=== PATIENT | female | born 1995 | race Caucasian/White ===

== ENCOUNTER → 2017-12-07 | Outpatient (CLI) | payer MEDICAID ==
[~2017-12-07] MED LIST: ACET-2267 PO; ACHD5005 PO; CEFD300C3 PO; CEPH500C PO; DIPH25CA79 PO; IBUP-1773 PO; VIT1TABL75 PO
--- NOTE | 2017-12-07 15:57 | Diagnostic Imaging Report ---
INDICATION: care in second trimester. TECHNIQUE: Multiple real-time grayscale images were obtained over the gravid uterus. COMPARISON: There are no prior studies available for comparison. FINDINGS: There is a single live fetus in variable presentation. heart motion was noted and a rate of 140 BPM was recorded. There were no obvious abnormalities identified. However, it may prove worthwhile to have a short-term (4-6 week) followup exam for more sensitive evaluation of the anatomy. The placenta is fundal and there is no previa. The amniotic fluid volume is within normal limits. The cervix was identified and measures 4.9 cm in length. IMPRESSION: 1. There is a single live fetus of approximately 15 weeks gestation +/-1 week. The EDC is May 31, 2018. 2. There were no obvious abnormalities identified. Recommendations, as above. Biometrical measurements are as follows: Biparietal 2.99 cm, age 15 weeks 4 days. Head circumference 10.29 cm, age 14 weeks 6 days. Abdominal circumference 8.52 cm, age 14 weeks 6 days. Femur length 1.54 cm, age 14 weeks 4 days. Sonographic estimate age: 15 weeks 0 days. Sonographic estimated date of delivery: . Estimated Weight: 105 gm (+/- 15 gm). LMP percentile: %. heart rate: 140 beats per minute. number: 1 of 1. Dictated by: Dictated on workstation # [id number]
== END ==
LOC: RAD 14:01
PROVIDERS: ATTEND Family Medicine
DX: Z34.92 Encounter for supervision of normal pregnancy, unspecified, second trimester (principal); Z3A.15 15 weeks gestation of pregnancy
CPT/HCPCS: 76805

== ENCOUNTER 2018-01-01 00:34 | Emergency (ER) | payer MEDICAID ==
[~2018-01-01] VITALS: Ht 162.6 cm; Wt 72.6 kg
[2018-01-01 01:15] LABS: BASOPHILS % (AUTO) 0 % (0-10); EOSINOPHILS # (AUTO) 0.1 10^3/uL (0.0-0.3); EOSINOPHILS % (AUTO) 1 % (0-10); HEMATOCRIT 33 % (35-52); HEMOGLOBIN 11.2 G/DL (11.5-16.0); LYMPHOCYTES # (AUTO) 0.5 X 10^3 (1.0-4.0); LYMPHOCYTES % (AUTO) 5 % (12-44); MEAN CORPUSCULAR HEMOGLOBIN 33 PG (25-34); MEAN CORPUSCULAR HGB CONC 34 G/DL (32-36); MEAN CORPUSCULAR VOLUME 96 FL (80-99); MEAN PLATELET VOLUME 10.2 FL (7.4-10.4); MONOCYTES # (AUTO) 0.3 X 10^3 (0.0-1.0); MONOCYTES % (AUTO) 3 % (0-12); NEUTROPHILS # (AUTO) 9.2 X 10^3 (1.8-7.8); NEUTROPHILS % (AUTO) 91 % (42-75); PLATELET COUNT 210 10^3/uL (130-400); RED BLOOD COUNT 3.38 10^6/uL (4.35-5.85); RED CELL DISTRIBUTION WIDTH 12.9 % (10.0-14.5); WHITE BLOOD COUNT 10.1 10^3/uL (4.3-11.0)
--- NOTE | 2018-01-01 01:17 | ED Integumentary General ---
General Chief Complaint: Bite-Animal/Human/Insect Stated Complaint: DIZZY,18 WKS ,SPIDER BITE ON ARM Nursing Triage Note: Pt awoke 12/31 a.m. and felt a sensation of pain and itching to right arm below elbow. Swelling and warmth known. Pt c/o rash to body, itching, GILMAN, and aches. Source: patient Exam Limitations: no limitations (SADIA CURTIS) History of Present Illness Date Seen by Provider: Jan 01, 2018 Time Seen by Provider: 01:12 Initial Comments Patient to ER with complaints of redness, swelling, increased pain to the right forearm after what she thinks was a spider bite. She reports waking up this morning to pain in the right forearm that has increased throughout the day. This evening the patient developed an itching rash on the upper portions of her arms and chest. She is also 18 weeks . Timing/Duration: this morning Severity: mild Location: generalized Associated Symptoms: rash (SADIA CURTIS) Associated Symptoms: fever (JULIA KHAN MD) Allergies and Home Medications Allergies Coded Allergies: No Known Drug Allergies (Unverified , 01/01/18) Patient Home Medication List Home Medication List Reviewed: Yes (SADIA CURTIS) Constitutional: see HPI EENTM: see HPI Respiratory: see HPI Cardiovascular: see HPI Gastrointestinal: see HPI Genitourinary: see HPI : Yes Expected Date of Delivery: May 31, 2018 Musculoskeletal: see HPI Skin: see HPI, lesions (to the right forearm), pruritus, rash Psychiatric/Neurological: See HPI Endocrine: See HPI Hematologic/Lymphatic: See HPI (SADIA CURTIS) All Other Systems Reviewed Negative Unless Noted: Yes (SADIA CURTIS) Past Gpbpzyf-Ymddfd-Kvgivx Hx Past Med/Social Hx: Reviewed Nursing Past Med/Soc Hx (SADIA CURTIS) Past Med/Social Hx: Reviewed Nursing Past Med/Soc Hx (JULIA KHAN MD) Patient Social History Alcohol Use: Denies Use Recreational Drug Use: No Smoking Status: Current Everyday Smoker Type Used: Cigarettes 2nd Hand Smoke Exposure: Yes Recent Foreign Travel: No Contact w/Someone Who Travel: No Recent Infectious Disease Expo: No Recent Hopitalizations: No (SADIA CURTIS) Immunizations Up To Date Tetanus Booster (TDap): Unknown (BERNOT,SADIA STUDENT) Seasonal Allergies Seasonal Allergies: No (SADIA CURTIS STUDENT) Past Medical History Surgeries: Yes (C/S x 2, Teeth extractions) Adenoidectomy, Section, Tonsillectomy Respiratory: No Cardiac: No Neurological: No Hx : 3 Hx Para: 2 Genitourinary: No Gastrointestinal: No Musculoskeletal: No Endocrine: No HEENT: No Cancer: No Psychosocial: Yes Anxiety Integumentary: No (SADIA CURTIS STUDENT) Family Medical History Reviewed Nursing Family Hx (SADIA CURTIS STUDENT) Reviewed Nursing Family Hx (JULIA KHAN MD) Physical Exam Vital Signs Vital Signs - First Documented 01/01/18 00:40 Temp 100.3 Pulse 98 Resp 20 B/P (MAP) 108/64 (79) Pulse Ox 98 O2 Delivery Room Air (JULIA KHAN MD) Vital Signs Capillary Refill : Less Than 3 Seconds (SADIA CURTIS STUDENT) General Appearance: WD/WN, no apparent distress HEENT: PERRL/EOMI, normal ENT inspection, TMs normal, pharynx normal Neck: non-tender, full range of motion, supple, normal inspection Cardiovascular: regular rate, rhythm, no edema, no gallop, no JVD, no murmur Respiratory: chest non-tender, lungs clear, normal breath sounds, no respiratory distress, no accessory muscle use Gastrointestinal: normal bowel sounds, non tender, soft, no organomegaly, no pulsatile mass Back: normal inspection, no CVA tenderness, no vertebral tenderness Extremities: normal inspection, no pedal edema, no calf tenderness, other ( increased pain and tenderness to the right elbow with motion.) Neurologic/Psychiatric: alert, normal mood/affect, oriented x 3 Skin: normal color, warm/dry Skin Problem Location: upper extremities (right forearm) Skin Problem Character: erythema, lesion, urticarial, warm Lymphatic: no adenopathy (SADIA CURTIS STUDENT) Progress/Results/Core Measures Results/Orders Lab Results Laboratory Tests Test 01/01/18 01:05 01/01/18 02:23 Range/Units White Blood Count 10.1 4.3-11.0 10^3/uL Red Blood Count 3.38 L 4.35-5.85 10^6/uL Hemoglobin 11.2 L 11.5-16.0 G/DL Hematocrit 33 L 35-52 % Mean Corpuscular Volume 96 80-99 FL Mean Corpuscular Hemoglobin 33 25-34 PG Mean Corpuscular Hemoglobin Concent 34 32-36 G/DL Red Cell Distribution Width 12.9 10.0-14.5 % Platelet Count 210 130-400 10^3/uL Mean Platelet Volume 10.2 7.4-10.4 FL Neutrophils (%) (Auto) 91 H 42-75 % Lymphocytes (%) (Auto) 5 L 12-44 % Monocytes (%) (Auto) 3 0-12 % Eosinophils (%) (Auto) 1 0-10 % Basophils (%) (Auto) 0 0-10 % Neutrophils # (Auto) 9.2 H 1.8-7.8 X 10^3 Lymphocytes # (Auto) 0.5 L 1.0-4.0 X 10^3 Monocytes # (Auto) 0.3 0.0-1.0 X 10^3 Eosinophils # (Auto) 0.1 0.0-0.3 10^3/uL Basophils # (Auto) 0.0 0.0-0.1 10^3/uL Neutrophils % (Manual) 89 % Lymphocytes % (Manual) 7 % Monocytes % (Manual) 1 % Band Neutrophils 3 % Blood Morphology Comment NORMAL Erythrocyte Sedimentation Rate 17 0-20 MM/HR Sodium Level 135 135-145 MMOL/L Potassium Level 3.7 3.6-5.0 MMOL/L Chloride Level 105 98-107 MMOL/L Carbon Dioxide Level 19 L 21-32 MMOL/L Anion Gap 11 5-14 MMOL/L Blood Urea Nitrogen 10 7-18 MG/DL Creatinine 0.60 0.60-1.30 MG/DL Estimat Glomerular Filtration Rate > 60 BUN/Creatinine Ratio 17 Glucose Level 88 70-105 MG/DL Calcium Level 8.8 8.5-10.1 MG/DL Total Bilirubin 0.2 0.1-1.0 MG/DL Aspartate Amino Transf (AST/SGOT) 12 5-34 U/L Alanine Aminotransferase (ALT/SGPT) 14 0-55 U/L Alkaline Phosphatase 49 40-136 U/L C-Reactive Protein High Sensitivity 1.48 H 0.00-0.50 MG/DL Total Protein 6.1 L 6.4-8.2 GM/DL Albumin 3.6 3.2-4.5 GM/DL (JULIA KHAN MD) My Orders Orders - JULIA KHAN MD Cbc With Automated Diff (01/01/18 01:10) Comprehensive Metabolic Panel (01/01/18 01:10) Hs C Reactive Protein (01/01/18 01:10) Erythrocyte Sedimentation Rate (01/01/18 01:10) Saline Lock/Iv-Start (01/01/18 01:10) Manual Differential (01/01/18 01:05) Diphenhydramine Injection (Benadryl Inje (01/01/18 01:46) Dexamethasone Pf Injection (Decadron Pf (01/01/18 01:46) Acetaminophen Tablet (Tylenol Tablet) (01/01/18 01:46) Dexamethasone Injection (Decadron Inject (01/01/18 01:50) Tick Panel With Lyme Eia (01/01/18 02:17) Ondansetron Injection (Zofran Injectio (01/01/18 02:45) Morphine Injection (Morphine Injection (01/01/18 02:42) Diphenhydramine Tablet (Benadryl Tablet) (01/01/18 03:15) (JULIA KHAN MD) Medications Given in ED Current Medications Medications Dose Ordered Sig/Kwame Route Start Time Stop Time Status Last Admin Dose Admin Dexamethasone Sodium Phosphate 10 mg STK-MED ONCE .ROUTE 01/01/18 01:50 01/01/18 01:51 DC 01/01/18 01:53 10 MG Ondansetron HCl 4 mg ONCE ONCE IVP 01/01/18 02:45 01/01/18 02:46 DC 01/01/18 02:50 4 MG (JULIA KHAN MD) Vital Signs/I&O 01/01/18 00:40 Temp 100.3 Pulse 98 Resp 20 B/P (MAP) 108/64 (79) Pulse Ox 98 O2 Delivery Room Air (JULIA KHAN MD) Blood Pressure Mean: 79 Progress Progress Note : Progress Note I have seen and evaluated the patient and agree with above except as indicated. I have directed the plan of care. Patient is here with probable insect bite to the right forearm just proximal to the elbow. This does have a small central purple core surrounded by approximately 10 cm of erythema and induration. Reports this area is painful. Also has itchy rash over generalized body but greatest in the upper extremities bilaterally. Rash does not include the palms. We did check basic labs. We will add tick panel. Benadryl 25 mg IV and Decadron 10 mg IV given. Acetaminophen 1000 mg by mouth given. Monitor patient. 0250: Patient still complaining of pain to the right arm. heart tones 155. Did receive morphine 5 mg IV and Zofran 4 mg IV as she typically has nausea with it. Further pain prescriptions per her dispatcher automobile rental. I will send copy of the chart to Dr. Ramirez. Patient to call him in the morning for further instructions. The rash has improved after the diphenhydramine and Decadron. 0315: Pain is improved. Patient still has some itching so Benadryl tablet 25 mg by mouth given. Discharged home with return precautions. Patient verbalize understanding instructions and agreement with plan. (JULIA KHAN MD) Departure Impression Primary Impression: Spider bite wound Qualified Codes: T63.304A - Toxic effect of unspecified spider venom, undetermined, initial encounter Additional Impression: Rash in adult Disposition: 01 HOME, SELF-CARE Condition: Stable Departure-Patient Inst. Decision time for Depature: 03:01 (JULIA KHAN MD) Referrals: STACEY RAMIREZ MD (PCP/Family) Primary Care Physician Patient Instructions: Insect Bites and Stings (DC), Spider Bites Add. Discharge Instructions: All discharge instructions reviewed with patient and/or family. Voiced understanding. You may take Benadryl/diphenhydramine 25 mg every 4-6 hours as needed for itching. You may take acetaminophen 1000 mg every 6 hours as needed for pain. Follow-up with your today for recheck and further evaluation. Call his office in the morning. Return for worse pain, fever, vomiting, weakness, breathing problems or other concerns as needed. We did draw blood to evaluate for tick born diseases but this will take 5 days. You'll be called if this is positive. You may use cold packs over swelling on the arm to reduce swelling 20 minutes per hour as needed. Copy Copies To 1: STACEY RAMIREZ MD, TRAVIS STUDENT Jan 01, 2018 01:17 JULIA KHAN MD Jan 01, 2018 02:16
[2018-01-01 01:31] LABS: BAND NEUTROPHILS 3 %; LYMPHOCYTES % (MANUAL) 7 %; MONOCYTES % (MANUAL) 1 %; NEUTROPHILS % (MANUAL) 89 %
[2018-01-01 01:32] LABS: RBC MORPH NORMAL
[2018-01-01 01:34] LABS: ALANINE AMINOTRANSFERASE 14 U/L (0-55); ALBUMIN 3.6 GM/DL (3.2-4.5); ALKALINE PHOSPHATASE 49 U/L (40-136); BILIRUBIN,TOTAL 0.2 MG/DL (0.1-1.0); BUN/CREATININE RATIO 17; CALCIUM 8.8 MG/DL (8.5-10.1); CARBON DIOXIDE 19 MMOL/L (21-32); CHLORIDE 105 MMOL/L (98-107); GFR ESTIMATED > 60; GLUCOSE 88 MG/DL (70-105); POTASSIUM 3.7 MMOL/L (3.6-5.0); SODIUM 135 MMOL/L (135-145); TOTAL PROTEIN 6.1 GM/DL (6.4-8.2)
[2018-01-01 01:38] LABS: ERYTHROCYTE SEDIMENTATION RATE 17 MM/HR (0-20)
[2018-01-01] MEDS ORDERED: ACETAMINOPHEN 500 MG TAB (TYLENOL) PO STA (01:46)
[2018-01-01] MEDS ORDERED: diphenhydrAMINE 50 MG/ML INJ (BENADRYL) IV STA (01:46)
[2018-01-01] MEDS ORDERED: DEXAMETHASONE 10 MG/ML (DECADRON) 1 ML VIAL ONE (01:50)
[2018-01-01] MEDS: DEXAMETHASONE PF 10 MG/ML (DECADRON) VIAL IV STA ×2 (01:53→01:58)
[2018-01-01] MEDS ORDERED: morphine INJ 10 MG/ML 1ML (SYR OR VIAL) IVP STA (02:42)
[2018-01-01] MEDS ORDERED: ONDANSETRON 4 MG/2 ML (SDV) Z0FRAN IVP ONE (02:45)
[2018-01-01] MEDS ORDERED: diphenhydrAMINE 25 MG TAB (BENADRYL) PO ONE ×2 (03:13→03:15)
[2018-01-01 03:17] VITALS: BP 99/58
== END 2018-01-01 03:17 | disposition home or self-care (01) ==
LOC: EDUNIT# 00:34 → ER 00:36
DX: O99.89 Other specified diseases and conditions complicating pregnancy, childbirth and the puerperium (principal); T63.301A Toxic effect of unspecified spider venom, accidental (unintentional), initial encounter; O99.712 Diseases of the skin and subcutaneous tissue complicating pregnancy, second trimester; R21 Rash and other nonspecific skin eruption; O99.342 Other mental disorders complicating pregnancy, second trimester; F41.9 Anxiety disorder, unspecified; O99.332 Smoking (tobacco) complicating pregnancy, second trimester; F17.210 Nicotine dependence, cigarettes, uncomplicated; Z87.59 Personal history of other complications of pregnancy, childbirth and the puerperium; Z90.89 Acquired absence of other organs; Z3A.18 18 weeks gestation of pregnancy
CPT/HCPCS: 36415; 80053; 85007; 85027; 85652; 86141; 86618; 86666; 86668; 86757; 96374; 96375

== ENCOUNTER 2018-01-08 04:47 | Observation (INO) | payer MEDICAID ==
[~2018-01-08] VITALS: Ht 162.6 cm; Wt 73.9 kg
[2018-01-08] MEDS ORDERED: methylPREDNISolone 125 MG (Solu-MEDROL) VIAL IV STA (05:03)
[2018-01-08 05:09] LABS: BILIRUBIN,URINE NEGATIVE (NEGATIVE); CLARITY,URINE SLIGHTLY CLOUDY; COLOR,URINE YELLOW; GLUCOSE, URINE (UA) NEGATIVE (NEGATIVE); KETONES,URINE NEGATIVE (NEGATIVE); NITRITE,URINE NEGATIVE (NEGATIVE); PH,URINE 6 (5-9); PROTEIN,URINE 1+ (NEGATIVE); UROBILINOGEN,URINE NORMAL (NORMAL)
--- NOTE | 2018-01-08 05:12 | ED Integumentary General ---
General Stated Complaint: SPIDER BITE ON RT ARM-PAINFUL Source: patient History of Present Illness Date Seen by Provider: Jan 08, 2018 Time Seen by Provider: 04:55 Initial Comments PT ARRIVES VIA POV FROM HOME PT STATES SHE THINKS SHE HAS A SPIDER BITE--" A BROWN RECLUSE BITE" PER PT--TO RIGHT FOREARM--OCCURRED OVER A WEEK AGO DID NOT SEE OR FEEL ANYTHING BITE HER C/O SEVERE PAIN TO THIS AREA NO DRAINAGE FROM AREA DOES NOT KNOW IF SHE HAS HAD FEVER OR NOT PT STATES SHE IS 23 WEEKS WAS SEEN HERE 01/01/18 FOR THIS PROBLEM--LAB DONE AND IV MEDICATIONS GIVEN. PT WAS ADVISED TO TAKE BENADRYL AND TYLENOL AND FOLLOW UP WITH PCP SEEN BY ADJUSTO WRITER OPERATOR/PA AT DR. RAMIREZ'S 1 WEEK AGO AND NO ADDITIONAL TESTS OR RX'S GIVEN PT HAD ROUTINE OB APPOINTMENT WITH DR. RAMIREZ 01/06/18 AND FOR THIS PROBLEM. WAS GIVEN RX FOR KEFLEX, TOLD TO TAKE BENADRYL AND IBUPROFEN AND WAS REFERRED TO DR. MARIA, SURGEON. PT HAS NOT ATTEMPTED TO CONTACT DR. MARIA FOR FOLLOW UP PT STATES PAIN IS SEVERE AND NO RELIEF WITH IBUPROFEN, TYLENOL, AND BENADRYL RATES PAIN A "200" OUT OF 10 Allergies and Home Medications Allergies Coded Allergies: No Known Drug Allergies (Unverified , 01/01/18) Patient Home Medication List Home Medication List Reviewed: Yes Constitutional: no symptoms reported Musculoskeletal: see HPI Skin: see HPI Psychiatric/Neurological: No Symptoms Reported; Denies Numbness, Denies Paresthesia Past Nhdjtmg-Iaelbq-Jwpdif Hx Patient Social History Alcohol Use: Denies Use Recreational Drug Use: No Smoking Status: Current Everyday Smoker Type Used: Cigarettes 2nd Hand Smoke Exposure: Yes Recent Foreign Travel: No Contact w/Someone Who Travel: No Recent Hopitalizations: No Immunizations Up To Date Tetanus Booster (TDap): Unknown Seasonal Allergies Seasonal Allergies: No Past Medical History Surgeries: Yes (C/S x 2, Teeth extractions) Adenoidectomy, Section, Tonsillectomy Respiratory: No Cardiac: No Neurological: No : Yes Female Reproductive Disorders: Denies Genitourinary: No Gastrointestinal: No Musculoskeletal: No Endocrine: No HEENT: No Cancer: No Psychosocial: Yes Anxiety Integumentary: No Physical Exam Vital Signs Capillary Refill : General Appearance: WD/WN, other (EXTREMELY MALODOROUS, REEKS OF CIGARETTES WELL, EXTREMELY DRAMATIC, ROCKING BACK AND FORTH, PACING--UNABLE TO STAND OR SIT STILL. PULLS ARM AWAY BEFORE I CAN EVEN LOOK AT THE AREA--BEFORE EVEN TOUCHING IT. ) Extremities: no pedal edema, normal capillary refill, other (HOLDS ENTIRE RIGHT ARM VERY STIFFLY WITH HER LEFT HAND. HAS APPROXIMATELY 8 CM AREA OF RETICULAR PURPLISH DISCOLORATION AROUND A CENTRAL DUSKY/DARK PURPLE AREA 1/2 X 2 CM IN DIAMETER. PINPOINT OPENING IN CENTER, WITHOUT DRAINAGE.NO ERYTHEMA, NO WARMTH, NO SWELLING . NO STREAKS. --THIS IS ON DORSAL/MEDIAL ASPECT OF RIGHT PROXIMAL FOREARM) Neurologic/Psychiatric: no motor/sensory deficits, alert, oriented x 3 Skin: warm/dry, other ( ABOVE) Progress/Results/Core Measures Results/Orders Lab Results Laboratory Tests Test 01/08/18 05:02 01/08/18 05:07 Range/Units Urine Color YELLOW Urine Clarity SLIGHTLY CLOUDY Urine pH 6 5-9 Urine Specific Delight 1.025 H 1.016-1.022 Urine Protein 1+ H NEGATIVE Urine Glucose (UA) NEGATIVE NEGATIVE Urine Ketones NEGATIVE NEGATIVE Urine Nitrite NEGATIVE NEGATIVE Urine Bilirubin NEGATIVE NEGATIVE Urine Urobilinogen NORMAL NORMAL MG/DL Urine Leukocyte Esterase 1+ H NEGATIVE Urine RBC (Auto) NEGATIVE NEGATIVE Urine RBC NONE /HPF Urine WBC 5-10 H /HPF Urine Squamous Epithelial Cells 10-25 H /HPF Urine Crystals NONE /LPF Urine Bacteria LARGE H /HPF Urine Casts NONE /LPF Urine Mucus SMALL H /LPF Urine Culture Indicated YES Urine Opiates Screen NEGATIVE NEGATIVE Urine Oxycodone Screen NEGATIVE NEGATIVE Urine Methadone Screen NEGATIVE NEGATIVE Urine Propoxyphene Screen NEGATIVE NEGATIVE Urine Barbiturates Screen NEGATIVE NEGATIVE Ur Tricyclic Antidepressants Screen NEGATIVE NEGATIVE Urine Phencyclidine Screen NEGATIVE NEGATIVE Urine Amphetamines Screen NEGATIVE NEGATIVE Urine Methamphetamines Screen NEGATIVE NEGATIVE Urine Benzodiazepines Screen NEGATIVE NEGATIVE Urine Cocaine Screen NEGATIVE NEGATIVE Urine Cannabinoids Screen NEGATIVE NEGATIVE White Blood Count 10.8 4.3-11.0 10^3/uL Red Blood Count 3.26 L 4.35-5.85 10^6/uL Hemoglobin 11.1 L 11.5-16.0 G/DL Hematocrit 31 L 35-52 % Mean Corpuscular Volume 96 80-99 FL Mean Corpuscular Hemoglobin 34 25-34 PG Mean Corpuscular Hemoglobin Concent 36 32-36 G/DL Red Cell Distribution Width 12.5 10.0-14.5 % Platelet Count 273 130-400 10^3/uL Mean Platelet Volume 10.4 7.4-10.4 FL Neutrophils (%) (Auto) 58 42-75 % Lymphocytes (%) (Auto) 30 12-44 % Monocytes (%) (Auto) 8 0-12 % Eosinophils (%) (Auto) 3 0-10 % Basophils (%) (Auto) 0 0-10 % Neutrophils # (Auto) 6.3 1.8-7.8 X 10^3 Lymphocytes # (Auto) 3.2 1.0-4.0 X 10^3 Monocytes # (Auto) 0.9 0.0-1.0 X 10^3 Eosinophils # (Auto) 0.4 H 0.0-0.3 10^3/uL Basophils # (Auto) 0.0 0.0-0.1 10^3/uL Erythrocyte Sedimentation Rate 17 0-20 MM/HR Sodium Level 138 135-145 MMOL/L Potassium Level 3.8 3.6-5.0 MMOL/L Chloride Level 111 H 98-107 MMOL/L Carbon Dioxide Level 16 L 21-32 MMOL/L Anion Gap 11 5-14 MMOL/L Blood Urea Nitrogen 15 7-18 MG/DL Creatinine 0.60 0.60-1.30 MG/DL Estimat Glomerular Filtration Rate > 60 BUN/Creatinine Ratio 25 Glucose Level 88 70-105 MG/DL Calcium Level 8.9 8.5-10.1 MG/DL Total Bilirubin 0.1 0.1-1.0 MG/DL Aspartate Amino Transf (AST/SGOT) 10 5-34 U/L Alanine Aminotransferase (ALT/SGPT) 13 0-55 U/L Alkaline Phosphatase 47 40-136 U/L C-Reactive Protein High Sensitivity 0.32 0.00-0.50 MG/DL Total Protein 6.3 L 6.4-8.2 GM/DL Albumin 3.5 3.2-4.5 GM/DL My Orders Orders - ALE BERRY DO Saline Lock/Iv-Start (01/08/18 05:03) Cbc With Automated Diff (01/08/18 05:03) Comprehensive Metabolic Panel (01/08/18 05:03) Hs C Reactive Protein (01/08/18 05:03) Erythrocyte Sedimentation Rate (01/08/18 05:03) Drug Screen Stat (Urine) (01/08/18 05:03) Ua Culture If Indicated (01/08/18 05:03) Methylprednisolone Sod Succ (Solu-Medrol (01/08/18 05:03) Diphenhydramine Injection (Benadryl Inje (01/08/18 05:15) Heart Tones (01/08/18 05:04) Urine Culture (01/08/18 05:02) Ceftriaxone Injection (Rocephin Injectio (01/08/18 06:00) Hydrocodone/Apap 5/325 Tablet (Lortab 5 (01/08/18 06:00) Medications Given in ED Current Medications Medications Dose Ordered Sig/Kwame Route Start Time Stop Time Status Last Admin Dose Admin Acetaminophen/ Hydrocodone Bitart 1 tab ONCE ONCE PO 01/08/18 06:00 01/08/18 06:01 DC 01/08/18 06:00 1 TAB Ceftriaxone Sodium 1000 mg/ Sodium Chloride 50 ml @ 100 mls/hr ONCE ONCE IV 01/08/18 06:00 01/08/18 06:29 01/08/18 06:07 100 MLS/HR Diphenhydramine HCl 50 mg ONCE ONCE IVP 01/08/18 05:15 01/08/18 05:16 DC 01/08/18 05:10 50 MG Progress Progress Note : Progress Note FHR 141 Departure Communication (Admissions) 0542--SPOKE WITH DR. RAMIREZ, ACCEPTS PT FOR ADMIT. WILL HAVE DR. AMRIA CONSULTED. Impression Primary Impression: Intractable pain Additional Impressions: POSSIBLE INSECT/SPIDER BITE RIGHT FOREARM 23 weeks gestation of Disposition: ADMITTED INPATIENT Condition: Stable Admissions Decision to Admit Reason: Admit from ER (General) Decision to Admit/Date: Jan 08, 2018 Time/Decision to Admit Time: 05:45 Departure-Patient Inst. Referrals: STACEY RAMIREZ MD (PCP/Family) Primary Care Physician Images Full Body/Extremities Full 1 - ALE BERRY DO Jan 08, 2018 05:11
[2018-01-08] MEDS ORDERED: diphenhydrAMINE 50 MG/ML INJ (BENADRYL) IVP ONE (05:15)
[2018-01-08 05:20] LABS: BASOPHILS % (AUTO) 0 % (0-10); EOSINOPHILS # (AUTO) 0.4 10^3/uL (0.0-0.3); EOSINOPHILS % (AUTO) 3 % (0-10); HEMATOCRIT 31 % (35-52); HEMOGLOBIN 11.1 G/DL (11.5-16.0); LYMPHOCYTES # (AUTO) 3.2 X 10^3 (1.0-4.0); LYMPHOCYTES % (AUTO) 30 % (12-44); MEAN CORPUSCULAR HEMOGLOBIN 34 PG (25-34); MEAN CORPUSCULAR HGB CONC 36 G/DL (32-36); MEAN CORPUSCULAR VOLUME 96 FL (80-99); MEAN PLATELET VOLUME 10.4 FL (7.4-10.4); MONOCYTES # (AUTO) 0.9 X 10^3 (0.0-1.0); MONOCYTES % (AUTO) 8 % (0-12); NEUTROPHILS # (AUTO) 6.3 X 10^3 (1.8-7.8); NEUTROPHILS % (AUTO) 58 % (42-75); PLATELET COUNT 273 10^3/uL (130-400); RED BLOOD COUNT 3.26 10^6/uL (4.35-5.85); RED CELL DISTRIBUTION WIDTH 12.5 % (10.0-14.5); WHITE BLOOD COUNT 10.8 10^3/uL (4.3-11.0)
[2018-01-08 05:35] LABS: BACTERIA,URINE LARGE /HPF; LEUKOCYTE ESTERASE ,URINE 1+ (NEGATIVE)
[2018-01-08 05:37] LABS: AMPHETAMINE SCREEN, URINE NEGATIVE (NEGATIVE); BARBITURATE SCREEN URINE NEGATIVE (NEGATIVE); BENZODIAZEPINES SCREEN URINE NEGATIVE (NEGATIVE); CANNABINOID SCREEN, URINE NEGATIVE (NEGATIVE); COCAINE SCREEN URINE NEGATIVE (NEGATIVE); METHADONE STAT NEGATIVE (NEGATIVE); METHAMPHETAMINE SCREEN URINE S NEGATIVE (NEGATIVE); OPIATE SCREEN URINE NEGATIVE (NEGATIVE); OXYCODONE STAT NEGATIVE (NEGATIVE); PROPOXYPHENE STAT NEGATIVE (NEGATIVE); TRICYCLIC ANTIDEPRESSANTS SCRE NEGATIVE (NEGATIVE)
[2018-01-08 05:41] LABS: ALANINE AMINOTRANSFERASE 13 U/L (0-55); ALBUMIN 3.5 GM/DL (3.2-4.5); ALKALINE PHOSPHATASE 47 U/L (40-136); BILIRUBIN,TOTAL 0.1 MG/DL (0.1-1.0); BUN/CREATININE RATIO 25; CALCIUM 8.9 MG/DL (8.5-10.1); CARBON DIOXIDE 16 MMOL/L (21-32); CHLORIDE 111 MMOL/L (98-107); GFR ESTIMATED > 60; GLUCOSE 88 MG/DL (70-105); POTASSIUM 3.8 MMOL/L (3.6-5.0); SODIUM 138 MMOL/L (135-145); TOTAL PROTEIN 6.3 GM/DL (6.4-8.2)
[2018-01-08 05:46] LABS: ERYTHROCYTE SEDIMENTATION RATE 17 MM/HR (0-20)
[2018-01-08] MEDS ORDERED: cefTRIAXone INJECTION 1,000 MG in NS (IVPB) 50 ML IV ONE (06:00)
[2018-01-08] MEDS ORDERED: HYDROcodone/APAP 5 MG/325 MG (LORTAB) TAB PO ONE (06:00)
--- NOTE | 2018-01-08 07:44 | History & Physicial (CHS) ---
HPI History of Present Illness: 22-year-old female currently at 23 weeks gestation who is admitted for observation after having what appears to be a spider bite to the right forearm. She reports the bite occurred about one week ago and has caused her considerable pain. The area initially was erythematous or red and now has became darkened. Patient has been to the emergency department 3 times in urgent care one time over the past week. She is currently on cephalexin 500 mg 3 times daily. She does not admit to any fever. She has been taking Tylenol for pain relief. Source: patient Exam Limitations: clinical condition Date seen by provider: Jan 08, 2018 Time Seen by Provider: 07:45 Attending Physician Dewayne Payne MD PCP Stacey Ramirez MD Consult Date of Admission Jan 08, 2018 at 05:45 Home Medications Home Medications Reviewed patient Home Medication Reconciliation performed by pharmacy medication reconciliations integration technician and/or nursing. Patients Allergies have been reviewed. Allergies Coded Allergies: No Known Drug Allergies (Unverified , 01/01/18) YCP-Okvffb-Wadmkk Hx Patient Social History Alcohol Use: Denies Use Recreational Drug Use: No Smoking Status: Current Everyday Smoker Type Used: Cigarettes 2nd Hand Smoke Exposure: Yes Recent Foreign Travel: No Contact w/other who traveled: No Recent Hopitalizations: No Immunizations Up To Date Tetanus Booster (TDap): Unknown Review of Systems (CHC) Constitutional: see HPI Physical Exam-(CHC) Physical Exam Vital Signs VS - Last 72 Hours, by Label 01/08/18 01/08/18 01/08/18 01/08/18 07:47 12:00 16:49 20:00 Temp 97.9 97.5 98.0 Pulse 81 76 83 80 Resp 18 18 17 17 B/P (MAP) 105/71 106/66 (79) 102/63 (76) 111/58 (75) Pulse Ox 100 96 97 16 O2 Delivery Room Air Room Air Room Air 01/08/18 01/09/18 23:45 04:00 Temp 98.0 97.8 Pulse 83 81 Resp 20 22 B/P (MAP) 107/60 (76) 106/58 (74) Pulse Ox 95 92 O2 Delivery Room Air Room Air Capillary Refill : General Appearance: mild distress HEENT: pharynx normal Neck: supple Respiratory: lungs clear Cardiovascular: regular rate, rhythm Assessment/Plan Assessment/Plan Admission Dx 1. Cellulitis right forearm 2. Presumed spider bite possible brown recluse to the right forearm 3. Severe pain Admission Status: Observation Reason for Inpatient Admission: Initiation of IV antibiotic Rocephin as well as surgical input Assessment & Plan 1. Cellulitis right forearm -To continue with IV Rocephin 2. Presumed spider bite possible brown recluse to the right forearm -Consultation with surgery Dr. Payne 3. Severe pain -She has received hydrocodone in the emergency department. STACEY RAMIREZ MD Jan 08, 2018 07:44
[2018-01-08] MEDS ORDERED: CATHETER FLUSH 10 ML SYR IV PRN (08:00)
[2018-01-08] MEDS ORDERED: ACET-2267 PO (09:40)
[2018-01-08] MEDS ORDERED: VIT1TABL75 PO (09:40)
[2018-01-08] MEDS ORDERED: IBUP-1773 PO (09:40)
[2018-01-08] MEDS ORDERED: DIPH25CA79 PO (09:40)
[2018-01-08] MEDS ORDERED: CEPH500C PO (09:40)
[2018-01-08 12:00] VITALS: BP 106/66
[2018-01-08] MEDS: HYDROcodone/APAP 5 MG/325 MG (LORTAB) TAB PO PRN ×3 (12:17→22:36)
[2018-01-08] MEDS: methylPREDNISolone 125 MG (Solu-MEDROL) VIAL IV SCH ×3 (12:41→23:46)
[2018-01-08] MEDS: CATHETER FLUSH 10 ML SYR IV SCH ×2 (12:43→22:37)
--- NOTE | 2018-01-08 13:20 | Consultation ---
History of Present Illness History of Present Illness Patient Consulted On(kari/time) 01/08/18 13:18 Date Seen by Provider: Jan 08, 2018 Time Seen by Provider: 12:30 Reason for Visit: Pain and redness of the right proximal forearm History of Present Illness This lady is 23 weeks with her third child and reports pain, swelling and redness over the proximal right forearm for the past 4 days. Allergies and Home Medications Allergies Coded Allergies: No Known Drug Allergies (Unverified , 01/01/18) Home Medications Acetaminophen 500 Mg Tablet, 1,000 MG PO Q6H PRN for PAIN-MILD, (Reported) Cephalexin 500 Mg Capsule, 500 MG PO BID, (Reported) 10 DAY SUPPLY FILLED 01-01-18 Diphenhydramine HCl 25 Mg Capsule, 25 MG PO BID PRN for ITCHING, (Reported) Ibuprofen 600 Mg Tablet, 600 MG PO TID PRN for PAIN-MILD, (Reported) Vit B Cmplx 3/FA/Vit C/Biotin 1 Each Tablet, 1 TAB PO DAILY, (Reported) Patient Home Medication List Home Medication List Reviewed: Yes Past Rhprits-Vxcdso-Mapebz Hx Patient Social History Alcohol Use: Denies Use Recreational Drug Use: No Smoking Status: Current Everyday Smoker Type Used: Cigarettes 2nd Hand Smoke Exposure: Yes Recent Foreign Travel: No Contact w/Someone Who Travel: No Recent Infectious Disease Expo: No Recent Hopitalizations: No Immunizations Up To Date Tetanus Booster (TDap): Unknown Seasonal Allergies Seasonal Allergies: Yes (POLLEN, GRASS) Past Medical History Surgeries: Yes (C/S x 2, Teeth extractions) Adenoidectomy, Section, Tonsillectomy Respiratory: No Cardiac: No Neurological: No : Yes (23 WEEKS) Female Reproductive Disorders: Denies Genitourinary: No Gastrointestinal: No Musculoskeletal: No Endocrine: No HEENT: No Cancer: No Psychosocial: Yes Anxiety Integumentary: No Blood Disorders: No Adverse Reaction/Blood Tranf: No Family Medical History Diabetes mellitus 19 FATHER FH: ADHD (attention deficit hyperactivity disorder) G8 SISTER (BIPOLAR, COMPLUSIVE DISORDER) Glaucoma 19 MOTHER Review of Systems-General Constitutional: fever EENTM: no symptoms reported Cardiovascular: no symptoms reported Gastrointestinal: no symptoms reported Genitourinary: see HPI Musculoskeletal: no symptoms reported Skin: see HPI Psychiatric/Neurological: No Symptoms Reported Physical Exam-General Problems Physical Exam Vital Signs Vital Signs - First Documented 01/08/18 01/08/18 07:47 12:00 Temp 97.9 Pulse 81 Resp 18 B/P (MAP) 105/71 Pulse Ox 100 O2 Delivery Room Air Capillary Refill : General Appearance: no apparent distress Extremities: other Comments 4 cm area of erythema along the proximal right forearm. No abscess. Assessment/Plan Assessment/Plan Admission Status: Observation Clinical Quality Measures DVT/VTE Risk/Contraindication: Risk Factor Score Per Nursin RFS Level Per Nursing on Admit: 1=Low/No VTE PPX RUBY MARIA MD Jan 08, 2018 1:20 pm
[2018-01-08 16:49] VITALS: BP 102/63
[2018-01-08 20:00] VITALS: BP 111/58
[2018-01-08 23:45] VITALS: BP 107/60
[2018-01-09 04:00] VITALS: BP 106/58
[2018-01-09] MEDS ORDERED: diphenhydrAMINE 25 MG TAB (BENADRYL) PO ONE (04:00)
[2018-01-09] MEDS ORDERED: diphenhydrAMINE 25 MG TAB (BENADRYL) PO PRN (04:00)
[2018-01-09] MEDS: CATHETER FLUSH 10 ML SYR IV SCH (05:53)
[2018-01-09] MEDS: methylPREDNISolone 125 MG (Solu-MEDROL) VIAL IV SCH (05:53)
[2018-01-09 06:52] LABS: BASOPHILS % (AUTO) 0 % (0-10); EOSINOPHILS % (AUTO) 0 % (0-10); HEMATOCRIT 30 % (35-52); HEMOGLOBIN 10.5 G/DL (11.5-16.0); LYMPHOCYTES # (AUTO) 1.6 X 10^3 (1.0-4.0); LYMPHOCYTES % (AUTO) 9 % (12-44); MEAN CORPUSCULAR HEMOGLOBIN 33 PG (25-34); MEAN CORPUSCULAR HGB CONC 35 G/DL (32-36); MEAN CORPUSCULAR VOLUME 96 FL (80-99); MEAN PLATELET VOLUME 10.8 FL (7.4-10.4); MONOCYTES # (AUTO) 0.3 X 10^3 (0.0-1.0); MONOCYTES % (AUTO) 2 % (0-12); NEUTROPHILS # (AUTO) 15.6 X 10^3 (1.8-7.8); NEUTROPHILS % (AUTO) 89 % (42-75); PLATELET COUNT 289 10^3/uL (130-400); RED BLOOD COUNT 3.18 10^6/uL (4.35-5.85); RED CELL DISTRIBUTION WIDTH 12.4 % (10.0-14.5); WHITE BLOOD COUNT 17.5 10^3/uL (4.3-11.0)
[2018-01-09 07:02] LABS: BUN/CREATININE RATIO 16; CALCIUM 8.8 MG/DL (8.5-10.1); CARBON DIOXIDE 15 MMOL/L (21-32); CHLORIDE 109 MMOL/L (98-107); CREATININE SERUM 0.57 MG/DL (0.60-1.30); GFR ESTIMATED > 60; GLUCOSE 185 MG/DL (70-105); POTASSIUM 3.8 MMOL/L (3.6-5.0); SODIUM 137 MMOL/L (135-145)
[2018-01-09 07:30] LABS: LYMPHOCYTES % (MANUAL) 11 %; MONOCYTES % (MANUAL) 2 %; NEUTROPHILS % (MANUAL) 87 %; RBC MORPH NORMAL
[2018-01-09 08:00] VITALS: BP 100/61
[2018-01-09] MEDS ORDERED: DIPH25CA79 PO (08:26)
[2018-01-09] MEDS ORDERED: ACHD5005 PO (08:26)
[2018-01-09] MEDS ORDERED: CEFD300C3 PO (08:26)
--- NOTE | 2018-01-09 08:27 | Discharge Inst-Simple/Standard ---
Discharge Inst-Standard Discharge Medications New, Converted or Re-Newed RX: Transmitted to Pharmacy Patient Instructions/Follow Up Plan of Care/Instructions/FU: FU with Dr Ramirez at [facility] this Thursday Activity as Tolerated: Yes Discharge Diet: No Restrictions Return to The Hospital For: Worsening pain, fever, darkening skin returns STACEY RAMIREZ MD Jan 09, 2018 08:27
[2018-01-09] MEDS ORDERED: cefTRIAXone INJECTION 1,000 MG in NS (IVPB) 50 ML IV SCH (09:00)
--- NOTE | 2018-01-09 09:31 | Discharge Summary ---
Diagnosis/Chief Complaint Date of Admission Jan 08, 2018 at 05:45 Date of Discharge January 09, 2018 Admission Diagnosis Admission Diagnosis 1. Cellulitis right forearm 2. Bite to the right forearm assumed brown recluse 3. second trimester Discharge Diagnosis 1. Cellulitis right forearm 2. Bite to the right forearm assumed brown recluse 3. second trimester Chief Complaint/HPI Chief Complaint/HPI 22-year-old female currently at 23 weeks gestation who is admitted for observation after having what appears to be a spider bite to the right forearm. She reports the bite occurred about one week ago and has caused her considerable pain. The area initially was erythematous or red and now has became darkened. Patient has been to the emergency department 3 times in urgent care one time over the past week. She is currently on cephalexin 500 mg 3 times daily. She does not admit to any fever. She has been taking Tylenol for pain relief. Discharge Summary-Simple/Stand Consultations surgery Dr. Payne Discharge Physical Examination Allergies: Coded Allergies: No Known Drug Allergies (Unverified , 01/01/18) Vitals & I&Os Vital Sign - Last 12Hours Date Time Temp Pulse Resp B/P (MAP) Pulse Ox O2 Delivery O2 Flow Rate FiO2 01/09/18 04:00 97.8 81 22 106/58 (74) 92 Room Air Intake and Output 01/09/18 00:00 Intake Total 2120 ml Output Total 950 ml Balance 1170 ml General Appearance: No Acute Distress Respiratory: Clear to Auscultation Cardiovascular: Regular Rate Abdominal: Soft (with positive heart tones checked by OB) Skin: Other (on dismissal the area circled has subsided with regards to erythema. There is also less tenderness with palpation.) Hospital Course patient initially admitted in the morning of January 08, 2018 due to the significant pain and cellulitis associated with her right forearm. She underwent placement on Rocephin 1 g every 24 hours and did receive a total of 2 doses during her stay. She remained afebrile. Her vital signs stable She did gain pain relief with hydrocodone 5 mg every 4 hours. Surgery did not believe she would need to have this debrided at this time. All questions were answered. She was released with oral Omnicef as well as hydrocodone and she understands to use this sparingly since she is with . Discharge Instructions to patient/family Please see electronic discharge instructions given to patient. Discharge Medications Reviewed and agree with Discharge Medication list on patient's Discharge Instruction sheet Clinical Quality Measures DVT/VTE Risk/Contraindication: Risk Factor Score Per Nursin RFS Level Per Nursing on Admit: 1=Low/No VTE PPX STACEY RAMIREZ MD Jan 09, 2018 09:31
[2018-01-09 11:07] VITALS: BP 100/61
== END 2018-01-09 08:22 | disposition home or self-care (01) ==
LOC: EDUNIT# 04:47 → ER 04:49 → 4TH 05:45 → UNDOADMOB 05:45 → 4TH 07:50 → UNDODISOB 01-09 11:45
PROVIDERS: ADMIT Surgery; ATTEND Surgery
DX: O9A.212 Injury, poisoning and certain other consequences of external causes complicating pregnancy, second trimester (principal); O99.712 Diseases of the skin and subcutaneous tissue complicating pregnancy, second trimester; L03.113 Cellulitis of right upper limb; S50.861A Insect bite (nonvenomous) of right forearm, initial encounter; O23.92 Unspecified genitourinary tract infection in pregnancy, second trimester; Z3A.23 23 weeks gestation of pregnancy; W57.XXXA Bitten or stung by nonvenomous insect and other nonvenomous arthropods, initial encounter
CPT/HCPCS: 36415; 80048; 80053; 80306; 81000; 85007; 85025; 85027; 85652; 86141; 87088; 96374; 96375; G0378

== ENCOUNTER → 2018-01-14 | Outpatient (CLI) | payer MEDICAID ==
--- NOTE | 2018-01-14 15:28 | Diagnostic Imaging Report ---
INDICATION: anatomy survey. TECHNIQUE: Multiple real-time grayscale images were obtained over the gravid uterus. COMPARISON: Ultrasound from 12/07/2017. FINDINGS: The cervix is closed and measures 4 cm in length. Placenta is fundal and anterior in location and there is no evidence of previa or abruption. Single live intrauterine in variable position. anatomy survey was performed and the following structures are visualized and normal: Cerebral ventricles, cerebellum, cisterna magna, kidneys, urinary bladder, spine, umbilical cord insertion and three-vessel cord. The four-chamber heart and stomach are not seen on this examination due to positioning. Biometrical measurements are as follows: Biparietal 4.8 cm, age 20 weeks 4 days. Head circumference 18.07 cm, age 20 weeks 4 days. Abdominal circumference 16.68 cm, age 21 weeks 5 days. Femur length 3.24 cm, age 20 weeks 1 days. Sonographic estimate age: 20 weeks 6 days. Sonographic estimated date of delivery: 05/28/2018. Estimated Weight: 386 gm (+/- 56 gm). LMP percentile: 72%. heart rate: 136 beats per minute. number: 1 of 1. IMPRESSION: 1. Single live intrauterine . 2. The heart and stomach were not able to be evaluated in this anatomy survey due to positioning. Advise short-term targeted ultrasound of these structures to ensure they are normal. 3. Remainder of the anatomy survey is normal. Dictated by: Dictated on workstation # [id number]
== END ==
LOC: RAD 13:04
PROVIDERS: ATTEND Family Medicine
DX: Z36.89 Encounter for other specified antenatal screening (principal); Z3A.20 20 weeks gestation of pregnancy
CPT/HCPCS: 76805